=== PATIENT | male | born 1965 ===

== ENCOUNTER 2017-06-30 07:50 | Day surgery (SDC) | payer MEDICAID ==
[2017-06-30 07:50] VITALS: BMI 31.9
--- NOTE | 2017-06-30 08:16 | C.PDOC ---
Time Seen by Provider: 06/30/17 08:04 Chief Complaint (Nursing): Medical Clearance Past Medical History Vital Signs: Last Vital Signs Temp 98.1 F 06/30/17 07:53 Pulse 45 L 06/30/17 07:53 Resp 18 06/30/17 07:53 BP 151/85 H 06/30/17 07:53 Pulse Ox 97 06/30/17 07:53 - Medical History PMH: Kidney Stones (8 MM), Chronic Kidney Disease - [facility] Procedures INJECT/INFUSE ELECTROLYT (10/11/14) INJECT/INFUSE NEC (10/11/14) - Social History Hx Alcohol Use: No Hx Substance Use: No ED Course And Treatment O2 Sat by Pulse Oximetry: 97 Progress - Re-Evaluation Re-evaluation Note: 06/30/17 08:15 D/W DR Janny JEAN-BAPTISTE. WILL ADMIT FOR CYSTO AND STENT PLACEMENT. NO XRAY NEEDED. ADMIT FOR O.R. TODAY - Data Reviewed Data Reviewed: Lab, Diagnostic imaging, EKG, Old records Disposition Counseled Patient/Family Regarding: Studies Performed, Diagnosis - Disposition Disposition: HOSPITALIZED Disposition Time: 08:16 Condition: STABLE Forms: [employer] (Yakut) - POA Present On Arrival: None - Clinical Impression Clinical Impression: Kidney stone, Renal colic Decision To Admit - Pt Status Changed To: Hospital Disposition Of: [facility]- Endo,OR,Cath,IR - . Bed Request Type: Same Day Surgery Admitting Physician: Sara Jean-Baptiste Patient Diagnosis: Kidney stone, Renal colic
--- NOTE | 2017-06-30 08:18 | C.PDOC ---
History Of Present Illness REFFERED BY DR. Janny REGAN FOR CYSTAL AND URETERAL STENT FOR PERSISTENT URETRAL UROLITHIASIS. PT DENIES ANY NEW SYMPTOMS FROM PRIOR EVAL. EXAM NEGATIVE Time Seen by Provider: 06/30/17 08:04 Chief Complaint (Nursing): Medical Clearance History Per: Patient History/Exam Limitations: no limitations Onset/Duration Of Symptoms: Days Current Symptoms Are (Timing): Still Present Recent travel outside of the [place]: No Past Medical History Reviewed: Historical Data, Nursing Documentation, Vital Signs Vital Signs: Last Vital Signs Temp 98.1 F 06/30/17 07:53 Pulse 45 L 06/30/17 07:53 Resp 18 06/30/17 07:53 BP 151/85 H 06/30/17 07:53 Pulse Ox 97 06/30/17 08:32 - Medical History PMH: Kidney Stones (8 MM), Chronic Kidney Disease - [facility] Procedures INJECT/INFUSE ELECTROLYT (10/11/14) INJECT/INFUSE NEC (10/11/14) Family History: States: Unknown Family Hx - Social History Hx Alcohol Use: No Hx Substance Use: No Review Of Systems Except As Marked, All Systems Reviewed And Found Negative. Constitutional: Negative for: Fever, Chills Respiratory: Negative for: Cough, Shortness of Breath Gastrointestinal: Negative for: Nausea, Vomiting, Abdominal Pain Physical Exam - Physical Exam Appears: Non-toxic, No Acute Distress Skin: Warm, Dry Head: Atraumatic, Normacephalic Oral Mucosa: Moist Chest: Symmetrical, No Tenderness Cardiovascular: Rhythm Regular Respiratory: Normal Breath Sounds, No Rales, No Rhonchi, No Wheezing Gastrointestinal/Abdominal: Soft, No Tenderness, No Guarding, No Rebound Back: Normal Inspection Extremity: Normal ROM, Capillary Refill (< 2 SEC. ) Neurological/Psych: Oriented x3, Normal Speech, Normal Cognition ED Course And Treatment ECG: Interpreted By Me ECG Rhythm: Sinus Bradycardia ECG Interpretation: No Changes From Prior (06/13/17) Interpretation Of ECG: TWI I, aVL Rate From EC O2 Sat by Pulse Oximetry: 97 (RA) Pulse Ox Interpretation: Normal Progress - Re-Evaluation Re-evaluation Note: 06/30/17 08:15 D/W DR Janny REGAN. WILL ADMIT FOR CYSTO AND STENT PLACEMENT. NO XRAY NEEDED. ADMIT FOR O.R. TODAY Disposition - Disposition Disposition: HOSPITALIZED Disposition Time: 08:16 Condition: STABLE Forms: [facility] (Frisian) - Clinical Impression Clinical Impression: Kidney stone, Renal colic - Scribe Statement The provider has reviewed the documentation as recorded by the Scribe SM All medical record entries made by the Scribe were at my direction and personally dictated by me. I have reviewed the chart and agree that the record accurately reflects my personal performance of the history, physical exam, medical decision making, and the department course for this patient. I have also personally directed, reviewed, and agree with the discharge instructions and disposition. Decision To Admit - . Patient Diagnosis: Kidney stone, Renal colic
[2017-06-30 09:00] LABS: INR 1.1
[2017-06-30] MEDS ORDERED: cefTRIAXone IV 1 gm in Dextros 50 ML IVPB ONE (09:37)
[2017-06-30] MEDS ORDERED: Iohexol 240 (50 ml) ONE (09:41)
[2017-06-30] MEDS ORDERED: Lactated Ringer's 1,000 ML IV ONE (09:42)
[2017-06-30] MEDS ORDERED: Midazolam 2 MG/2 ML VIAL ONE (09:42)
[2017-06-30] MEDS ORDERED: Propofol 10 mg/ml Inj (20 ML) ONE (09:43)
[2017-06-30 11:24] VITALS: RESP 18; O2SAT 100
[2017-06-30 12:08] VITALS: BP 148/74; PULSE 62; TEMP 97.7
--- NOTE | 2017-06-30 12:18 | RAD ---
PROCEDURE: Intraoperative Fluoroscopy. HISTORY: LT. URETERAL CALCULI FINDINGS: Fluoroscopic assistance was provided. 48.2 seconds of fluoroscopy time utilized during this procedure. Radiation dose = 1.04 mGy
--- NOTE | 2017-06-30 12:20 | RAD ---
HISTORY: LT. URETERAL CALCULI COMPARISON: [facility] FINDINGS: BOWEL: Normal. No obstruction. No free air. BONES: Normal. OTHER FINDINGS: There is an elliptical shaped calcific density which overlies the left L4 transverse process on the AP view and located to the left of the L3-L4 disc space on the LPO view ;. This could represent a proximal/ mid ureteral calculus. Also small calcifications seen overlying lower pole left kidney. IMPRESSION: The findings consistent with left-sided nephrolithiasis as above.
--- NOTE | 2017-07-01 20:14 | OP ---
PROCEDURE DATE: 06/30/2017 PREOPERATIVE DIAGNOSES: Left renal colic. Left upper ureteral calculus. POSTOPERATIVE DIAGNOSIS: Left renal colic. Left upper ureteral calculus. Hydronephrosis. PROCEDURE: Cystoscopy. Left retrograde pyelogram. Left ureteral stone manipulation. Insertion of left ureteral stent. The procedure was performed under video endoscopic control as well as under fluoroscopic control with C-arm. The practice specialist from the abdomen revealed the stone at approximately the L4 level. The stone was approximately 8 mm in size. The patient was placed in lithotomy position. Genitalia prepped and draped sterilely. Anesthesia was applied by the anesthesiologist. Perioperative antibiotics were administered. A 22-Uruguayan cystoscope sheath was introduced under direct vision. Urethra, prostate, and bladder were inspected. FINDINGS: There was no stricture in the anterior urethra. There was evidence of [id number] lateral lobe prostatic hypertrophy, which was mildly occlusive. The prostatic urethra was 3 cm in length. There was no bladder tumor. There was no bladder stone. There was mild bladder trabeculation. The ureteral orifices were normal in position and shape. A 0.035-inch guidewire was inserted into the left ureteral orifice. The guidewire was passed up to the level of the stone. The stone was impacted and did not allow passage of the guidewire proximally. An open end catheter was inserted over the guidewire. A combination of iodinated contrast was instilled and lidocaine jelly was instilled through the open end catheter. The stone was apparently dislodged as there was no longer seen along the course of the ureteral catheter. The ureteral catheter and guidewire were inserted up to the level of the kidney. Iodinated contrast demonstrated left hydronephrosis and calyces. The guidewire was reinserted. A 6-Uruguayan multi-length stent was inserted over the guidewire. Proper stent position was confirmed with fluoroscopy and endoscopy. The stent was left in place. The guidewire was removed. The bladder was then drained. Cystoscope sheaths were removed. Lidocaine jelly ____. Rectal examination was performed. The prostate was supple and smooth approximately 20 g in size without fixation, induration, or nodularity. The patient was returned to the supine position. The patient tolerated the procedure without complications. Sara MD [facility] # [id number]
--- NOTE | 2017-07-04 16:18 | CARD ---
APPROVED REPORT EKG Measurement Heart [id number] <Conclusion> Marked sinus bradycardia T wave abnormality, consider lateral ischemia Abnormal ECG
== END 2017-06-30 11:55 | disposition home or self-care (01) ==
LOC: C.SDS 07:50 → C.ER 07:50 → C.SDS 08:17
PROVIDERS: ATTEND Urology
DX: N13.2 Hydronephrosis with renal and ureteral calculous obstruction (principal)
CPT/HCPCS: 36415; 52330; 52332; 74020; 76000; 85610; 85730; 86850; 86900; 87086; 99285; C1769; C2617; J0696; J7120

== ENCOUNTER 2017-09-03 08:48 | Day surgery (SDC) | payer MEDICAID ==
[2017-09-03 08:49] VITALS: BMI 31.9
[2017-09-03 09:34] LABS: BASO % 0.6 % (0.0-2.0); EOS # 0.2 K/uL (0.0-0.7); EOS % 3.1 % (0.0-4.0); HEMATOCRIT 44.1 % (35.0-51.0); LYMPH # 1.5 K/uL (1.0-4.3); LYMPH % 23.6 % (20.0-40.0); MEAN CELL VOLUME 86.7 fL (80.0-94.0); MEAN CORPUSCULAR HEMOGLOBIN 30.2 pg (27.0-31.0); MEAN CORPUSCULAR HGB CONC 34.8 g/dL (33.0-37.0); MEAN PLATELET VOLUME 6.7 fL (7.2-11.7); MONO # 0.5 K/uL (0.0-0.8); MONO % 7.2 % (0.0-10.0); NRBC % 0.1 % (0.0-2.0); RED CELL DISTRIBUTION WIDTH 12.8 % (11.5-14.5); WHITE BLOOD COUNT 6.5 K/uL (4.8-10.8)
[2017-09-03] MEDS ORDERED: Sodium Chloride 0.9% 1,000 ML ONE (09:41)
[2017-09-03] MEDS ORDERED: Morphine 4 MG/ML VIAL ONE (09:41)
[2017-09-03 09:50] LABS: CHLORIDE 101 mmol/L (98-107)
[2017-09-03 09:51] LABS: POTASSIUM 4.1 mmol/L (3.6-5.2); SODIUM 136 mmol/L (132-148)
--- NOTE | 2017-09-03 09:52 | RAD ---
HISTORY: SOB COMPARISON: No prior. TECHNIQUE: Chest PA and lateral FINDINGS: LUNGS: No active pulmonary disease. PLEURA: No significant pleural effusion identified. No pneumothorax apparent. CARDIOVASCULAR: Normal. OSSEOUS STRUCTURES: No significant abnormalities. VISUALIZED UPPER ABDOMEN: Normal. OTHER FINDINGS: None. IMPRESSION: No active disease.
--- NOTE | 2017-09-03 09:52 | C.PDOC ---
History Of Present Illness 51 y/o male presents to ED sent by Dr. Jean-Baptiste for stent removal. Patient had stent placed in 2 months ago in left ureter and noted infection, saw yesterday who instructed patient to come to ED today. Patient denies fever, chills, nausea, vomiting or any other complaints at this time. Time Seen by Provider: 09/03/17 08:50 Chief Complaint (Nursing): Male Genitourinary History Per: Patient History/Exam Limitations: no limitations Onset/Duration Of Symptoms: Days Current Symptoms Are (Timing): Still Present Associated Symptoms: Fever, Chills Past Medical History Reviewed: Historical Data, Nursing Documentation, Vital Signs Vital Signs: Last Vital Signs Temp 97.5 F L 09/03/17 13:28 Pulse 54 L 09/03/17 13:28 Resp 15 09/03/17 13:28 BP 142/68 09/03/17 13:28 Pulse Ox 99 09/03/17 14:21 - Medical History PMH: Kidney Stones (8 MM), Chronic Kidney Disease Surgical History: No Surg Hx Other Surgeries: ureteral stents - [facility] Procedures INJECT/INFUSE ELECTROLYT (10/11/14) INJECT/INFUSE NEC (10/11/14) Family History: States: No Known Family Hx - Social History Hx Alcohol Use: No Hx Substance Use: No Review Of Systems Constitutional: Positive for: Fever, Chills Gastrointestinal: Positive for: Abdominal Pain. Negative for: Nausea, Vomiting Skin: Negative for: Rash Neurological: Negative for: Weakness, Numbness Physical Exam - Physical Exam Appears: Non-toxic, No Acute Distress Skin: Warm, Dry, No Rash Head: Atraumatic, Normacephalic Oral Mucosa: Moist Neck: Normal ROM, Supple Chest: Symmetrical Cardiovascular: Rhythm Regular Respiratory: Normal Breath Sounds, No Rales, No Rhonchi, No Wheezing Gastrointestinal/Abdominal: Soft, Tenderness (left flank/abdomen), No Guarding, No Rebound Back: Other (left sided flank tenderness) Extremity: Normal ROM, No Pedal Edema Neurological/Psych: Oriented x3 ED Course And Treatment - Laboratory Results Result Diagrams: 09/03/17 09:30 09/03/17 09:30 Lab Interpretation: Normal ECG: Interpreted By Me ECG Rhythm: Sinus Bradycardia ECG Interpretation: Normal Rate From EC O2 Sat by Pulse Oximetry: 99 (RA) Pulse Ox Interpretation: Normal Progress Note: case discussed with Dr Janny Jean-Baptiste and request admission to [facility] for stent removal. Treated with IVF and Morphine IV Reassessment Condition: Unchanged Medical Decision Making Medical Decision Making: Plan: Morphine, Patient is admitted to same day surgery Disposition Discussed With Dr.: Sara Jean-Baptiste Doctor Will See Patient In The: Hospital - Disposition Disposition: HOSPITALIZED Disposition Time: 13:30 Condition: STABLE - POA Present On Arrival: None - Clinical Impression Clinical Impression: Kidney stone - PA / [employer] / Resident Statement MD/DO has reviewed & agrees with the documentation as recorded. - Scribe Statement The provider has reviewed the documentation as recorded by the Scribe Sushma Charles All medical record entries made by the Scribe were at my direction and personally dictated by me. I have reviewed the chart and agree that the record accurately reflects my personal performance of the history, physical exam, medical decision making, and the department course for this patient. I have also personally directed, reviewed, and agree with the discharge instructions and disposition. Decision To Admit - Pt Status Changed To: Hospital Disposition Of: [facility]- Endo,OR,Cath,IR - . Bed Request Type: Same Day Surgery Admitting Physician: Sara Jean-Baptiste Patient Diagnosis: Kidney stone
[2017-09-03 09:53] LABS: GFR AFRICAN-AMERICAN > 60
[2017-09-03 09:54] LABS: BLOOD UREA NITROGEN 14 mg/dL (9-20); CALCIUM 10.6 mg/dl (8.6-10.4); CARBON DIOXIDE 29 mmol/L (22-30); GLUCOSE,RANDOM 94 mg/dL (75-110)
[2017-09-03] MEDS: Sodium Chloride 0.9% 1,000 ML IV ONE ×2 (09:57→12:20)
[2017-09-03] MEDS ORDERED: Lidocaine 2% Jelly (Uro-Jet) ONE (11:46)
[2017-09-03] MEDS ORDERED: Midazolam 2 MG/2 ML VIAL ONE (11:46)
[2017-09-03] MEDS ORDERED: Iohexol 240 (50 ml) ONE (11:46)
[2017-09-03] MEDS ORDERED: Propofol 10 mg/ml Inj (20 ML) ONE (11:47)
[2017-09-03] MEDS: Gentamicin 80 mg in 0.9% NS 160 MG/200 ML BAG IVPB ONE (11:50)
[2017-09-03] MEDS: cefTRIAXone IV 1 gm in Dextros 50 ML IVPB ONE (11:59)
[2017-09-03] MEDS ORDERED: HYDROmorphone 0.5 mg/0.5 ml ISec IVP PRN (12:37)
--- NOTE | 2017-09-03 12:42 | PCM.SURG1 ---
Surgeon's Initial Post Op Note - Surgeon's Notes Surgeon: Janny Jean-Baptiste Medicare Contact Specialist: none Type of Anesthesia: IV Sedation Pre-Operative Diagnosis: urolithiasis Operative Findings: same Post-Operative Diagnosis: same Operation Performed: cysto, removal of L ureteral stent Specimen/Specimens Removed: urine. stent Estimated Blood Loss: EBL {In ML}: 0 Blood Products Given: N/A Drains Used: No Drains Post-Op Condition: Good Date of Surgery/Procedure: 09/03/17 Time of Surgery/Procedure: 12:03
[2017-09-03] MEDS ORDERED: Lactated Ringer's 1,000 ML IV SCH (12:45)
[2017-09-03 13:44] VITALS: RESP 15
[2017-09-03 14:33] VITALS: BP 137/58; PULSE 58; TEMP 97.3; O2SAT 100
--- NOTE | 2017-09-03 15:19 | RAD ---
PROCEDURE: Intraoperative Fluoroscopy. HISTORY: LT. STENT FINDINGS: Fluoroscopic assistance was provided for left double-J ureteral stent 2.4 seconds of fluoroscopy was utilized with a cumulative radiation dose of 0.027 mGy meter squared.
--- NOTE | 2017-09-04 05:39 | OP ---
PREOPERATIVE DIAGNOSES: History of urolithiasis, hematuria. POSTOPERATIVE DIAGNOSES: History of urolithiasis, hematuria, cystitis. PROCEDURE: Cystoscopy, removal of left ureteral stent. OPERATING SURGEON: Sara Jean-Baptiste MD PROCEDURE IN DETAIL: The patient was placed in lithotomy position. The patient received perioperative antibiotics. Sedation was provided by the anesthesiologist. The genitalia was prepped and draped sterilely. Roofing Foreman fluoroscopy of the abdomen was performed. The left ureteral stent was in good position. Both ends of the stents were well coiled, proximally in the left kidney and distally in the bladder. There were no stones visualized in the kidney. The procedure was performed under video endoscopic control as follows. A 22-Croatian cystoscope sheath was introduced under direct vision. Urethra, prostate and bladder were inspected. FINDINGS: There was no stricture in the anterior urethra. There was mild prostatic hypertrophy. Prostatic urethra was occlusive. There was no bladder tumor. There was no bladder stone. There was moderate cystitis. The left ureteral stent was identified. The stent was grasped with rigid grasping forceps and delivered through the cystoscope sheath intact. The bladder was reinspected and confirmed the above findings. The bladder was then drained. Cystoscope sheath removed. Rectal examination was performed. Prostate was supple and smooth approximately 25 g size. There was no abnormal pelvic mass fixation or induration. The patient tolerated procedure without complication. Sara Jean-Baptiste MD
--- NOTE | 2017-09-05 12:23 | CARD ---
APPROVED REPORT EKG Measurement Heart [id number] HI [id number] <Conclusion> Sinus bradycardia Otherwise normal ECG
== END 2017-09-03 14:35 | disposition home or self-care (01) ==
LOC: C.ER 08:48 → C.SDS 09:44
PROVIDERS: ATTEND Urology
DX: N20.1 Calculus of ureter (principal); R31.9 Hematuria, unspecified; N20.0 Calculus of kidney
CPT/HCPCS: 52310; 71020; 80048; 85025; 87086; 93005; 96361; 96374; 99285; J0696; J1580; J2270; J7040